=== PATIENT | female | born 1950 | race Caucasian/White ===

== ENCOUNTER 2020-07-24 10:43 | Outpatient (CLI) | payer MEDICARE, SELFPAY ==
--- NOTE | 2020-07-24 10:58 | ECG_ITS ---
Measurements Intervals [place] Rate: 67 P: -32 [place]: 148 QRS: -37 QRSD: 90 T: 60 QT: 413 QTc: 437 Interpretive Statements SINUS RHYTHM LEFT AXIS DEVIATION DELAYED PRECORDIAL R/S TRANSITION VOLTAGE CRITERIA FOR LVH BASELINE ARTIFACT- I, II, III, AVF BORDERLINE ECG Electronically Signed On 07-24-2020 11:23:08 FUEL ATTENDANT by Frank Small D.O.
== END 2020-07-24 10:44 | disposition home or self-care (01) ==
LOC: ANHCARD 10:47
PROVIDERS: PCP Physician Assistant; Visit Provider Physician Assistant
DX: I49.9 Cardiac arrhythmia, unspecified (principal); R94.31 Abnormal electrocardiogram [ECG] [EKG]
CPT/HCPCS: 93005

== ENCOUNTER 2021-06-29 10:59 | Outpatient (CLI) | payer MEDICARE, SELFPAY ==
[2021-06-29 17:26] LABS: Free T4 Free Thyroxine 1.18 ng/mL (0.78-2.19); Vitamin D 25 Hydroxy 51.5 ng/mL
[2021-07-02 15:03] LABS: Thyroid Stimulating Immunoglob <89 % baseline (<140)
== END 2021-06-29 11:00 | disposition home or self-care (01) ==
PROVIDERS: PCP Physician Assistant; Visit Provider Internal Medicine Endocrinology, Diabetes & Metabolism
DX: E03.9 Hypothyroidism, unspecified (principal); M85.89 Other specified disorders of bone density and structure, multiple sites; E55.9 Vitamin D deficiency, unspecified
CPT/HCPCS: 36415; 82306; 84439; 84443; 84445

== ENCOUNTER 2021-08-24 11:41 | Outpatient (CLI) | payer MEDICARE, SELFPAY ==
--- NOTE | ~2021-08-24 | MMUS_ITS ---
EXAMINATION: MM diagnostic flavio BI w alexsander, US breast RT limited, US breast LT complete HISTORY: Palpable breast lump. TECHNIQUE: Additional 3-D tomosynthesis images of the breasts were performed and synthetic 2-D images were generated. CAD analysis was submitted and interpreted. High resolution Limited right and comple te left breast ultrasound was performed. COMPARISON: No prior studies for comparison. BREAST PARENCHYMAL COMPOSITION: Breast composed of scattered areas of fibroglandular density. FINDINGS: MAMMOGRAPHIC FINDINGS: There is a cluster of indeterminate calcifications in the upper outer quadrant of the right breast po steriorly. There are no discrete masses or architectural distortion in either breast. ULTRASOUND: Limited right breast ultrasound: At 10:00, 4 cm from the nipple there is a 3 mm cyst. No suspicious m asses to suggest malignancy. Complete left breast ultrasound: The nipple at 6:00 is an oval hyperechoic mass without posterior features or internal vascularity ana suring 1 cm maximum dimension, compatible with benign lipoma. No suspicious masses to suggest maligna ncy. IMPRESSION: 1. Clustered indeterminate calcifications upper outer quadrant of the right breast. 2. Stereotactic right breast biopsy recommended. BI-RADS category 4, suspicious findings. Reviewed, dictated and finalized at location A. IMPRESSION: 1. Clustered indeterminate calcifications upper outer quadrant of the right matt ast. 2. Stereotactic right breast biopsy recommended. BI-RADS category 4, suspicious findings. IMPRESSION: 1. Clustered indeterminate calcifications upper outer quadrant of the right matt ast. 2. Stereotactic right breast biopsy recommended. BI-RADS category 4, suspicious findings.
== END 2021-08-24 11:42 | disposition home or self-care (01) ==
LOC: ANHIMG 11:47
PROVIDERS: PCP Physician Assistant; Visit Provider Obstetrics & Gynecology
DX: N63.20 Unspecified lump in the left breast, unspecified quadrant (principal); R92.8 Other abnormal and inconclusive findings on diagnostic imaging of breast
CPT/HCPCS: 76641; 76642; 77062; 77066; G0279

== ENCOUNTER → 2021-12-08 12:13 | Outpatient (CLI) | payer MEDICARE, SELFPAY ==
--- NOTE | ~2021-12-08 | DEXA_ITS ---
Bone Density Report Name: PHILLIP QUIROZ Age: 71 Sex: Female Ethnicity: White Date of : 1950 Indication: postmenopausal; screening for osteoporosis; height loss; Referring Provider: Sandrita Tello Study: Bone densitometry was performed. Exam Date: December 08, 2021 Accession number: [id number] Bone Density: Region BMD T-score Z-score Classification AP Spine (L1-L4) 0.933 -1.0 1.1 Normal Femoral Neck (Right) 0.715 -1.2 0.7 Osteopenia Total Hip (Right) 0.788 -1.3 0.3 Osteopenia World Health Organization criteria for BMD impression classify patients as: Normal (T-score at or above -1.0), Osteopenia (T-score between -1.0 and -2.5), or Osteoporosis (T-score at or below -2.5). 10-year Fracture Risk(1): Major Osteoporotic Fracture 8.9% Hip Fracture 1.1% Reported Risk Factors: [place] (), Neck BMD=0.715, BMI=34.1 (1) FRAX(R) Version 3.08. Fracture probability calculated for an untreated patient. Fracture probability may be lower if the patient has received treatment. Clinical Information Provided by Patient: Has used the following medications: Vitamin D, Calcium Patient maximum height was 66 Menopause Age: 55 No regular weight bearing exercise Drinks caffeinated beverages Onset of menses at age 14 Number of children 2 Impression: The patient has low bone mass, based on the Right Total Hip T-score. The patient has an estimated ten-year risk of hip fracture of 1.1% and an estimated ten-year risk of major fracture of 8.9%, based on the WHO FRAX algorithm. Discussion: BONE DENSITY IS LOW AT ONE OR MORE SKELETAL SITES. This patient's lowest T-score is low at one or more skeletal sites. It meets the World Health Organization's (WHO) criteria for ?low bone mass? (T-score between -1.0 and -2.5). The patient's 10-year risk of fracture as calculated by FRAX is less than the threshold where pharmacological therapy is recommended by the National Osteoporosis Foundation (NOF). However, all treatment decisions require clinical judgment and consideration of individual patient factors, including patient preferences, comorbidities, previous drug use, risk factors not captured in the FRAX model (e.g., frailty, falls, vitamin D deficiency, increased bone turnover, interval significant decline in bone density) and possible under or overestimation of fracture risk by FRAX. The patient should follow a healthful lifestyle (good nutrition with adequate calcium and vitamin D, and appropriate weight-bearing exercise). Follow-Up: Consider repeating this study in 2 to 3 years to reassess this patient's status, or sooner if there is some new clinical indication. Reported by: OCTAVIO on 12/08/2021 12:34:00 PM. Reviewed, dictated and finalized at location A. [place]
== END ==
PROVIDERS: PCP Internal Medicine; Visit Provider Internal Medicine Endocrinology, Diabetes & Metabolism
DX: Z78.0 Asymptomatic menopausal state (principal); M85.851 Other specified disorders of bone density and structure, right thigh
CPT/HCPCS: 77080

== ENCOUNTER 2022-10-27 09:24 | Outpatient (CLI) | payer MEDICARE, SELFPAY ==
--- NOTE | ~2022-10-27 | MM_ITS ---
EXAMINATION: MM screening [facility] BI w alexsander HISTORY: Screening TECHNIQUE: Craniocaudal and mediolateral oblique 3-D tomosynthesis images were obtained and synthetic 2-D images were generated. CAD analysis was submitted and interpreted. COMPARISON: Comparison to multiple prior studies sequentially, with oldest reviewed study dated 09/14. BREAST PARENCHYMAL COMPOSITION: Breast composed of scattered areas of fibroglandular density FINDINGS: There is a cluster of indeterminate calcifications which is stable compared with 08/24/2021 , likely benign. The left breast is stable without evidence for malignancy. IMPRESSION: 1. Clustered calcifications in the upper outer quadrant of the right breast unchanged compared with 0 08/24/2021, slightly increased compared with 09/26/2018. These are likely benign. 2. 6 month follow-up diagnostic right mammogram recommended. BI-RADS CATEGORY 3-PROBABLY BENIGN FINDING Reviewed, dictated and finalized at location A. IMPRESSION: 1. Clustered calcifications in the upper outer quadrant of the right breast unc hanged compared with 08/24/2021, slightly increased compared with 09/26/2018. T hese are likely benign. 2. 6 month follow-up diagnostic right mammogram recommended. BI-RADS CATEGORY 3-PROBABLY BENIGN FINDING
== END 2022-10-27 09:25 | disposition home or self-care (01) ==
LOC: ANHIMG 09:26
PROVIDERS: PCP Physician Assistant; Visit Provider Student in an Organized Health Care Education/Training Program
DX: Z12.31 Encounter for screening mammogram for malignant neoplasm of breast (principal); R92.8 Other abnormal and inconclusive findings on diagnostic imaging of breast
CPT/HCPCS: 77063; 77067

== ENCOUNTER 2023-05-04 10:52 | Outpatient (CLI) | payer MEDICARE, SELFPAY ==
--- NOTE | ~2023-05-04 | MM_ITS ---
EXAMINATION: MM diagnostic flavio RT w alexsander HISTORY: Six-month follow-up right breast calcifications TECHNIQUE: Additional 3-D tomosynthesis images of the right breast were performed and synthetic 2-D i mages were generated. CAD analysis was submitted and interpreted. COMPARISON: Comparison to multiple prior studies sequentially, with oldest reviewed study dated 11/2018. BREAST PARENCHYMAL COMPOSITION: Breast composed of scattered areas of fibroglandular density FINDINGS: Clustered indeterminate calcifications upper outer quadrant of the right breast posteriorly are stable allowing for differences in technique, likely benign. No new masses, calcifications or ar chitectural distortion in the right breast to suggest malignancy. IMPRESSION: 1. Probable benign right breast calcifications stable dating back to 08/24/2021. 2. 12 month interval diagnostic bilateral mammogram recommended. BI-RADS category 3, probably benign findings. Reviewed, dictated and finalized at location A. CREMATORY WORKER IMPRESSION: 1. Probable benign right breast calcifications stable dating back to 08/24/2021 . 2. 12 month interval diagnostic bilateral mammogram recommended. BI-RADS category 3, probably benign findings.
== END 2023-05-04 10:53 | disposition home or self-care (01) ==
PROVIDERS: PCP Physician Assistant; Visit Provider Student in an Organized Health Care Education/Training Program
DX: R92.8 Other abnormal and inconclusive findings on diagnostic imaging of breast (principal)
CPT/HCPCS: 77061; 77065; G0279

== ENCOUNTER 2024-09-19 10:18 | Outpatient (CLI) | payer MEDICARE, BC, SELFPAY ==
--- NOTE | ~2024-09-19 | MM_ITS ---
EXAMINATION: MM diagnostic flavio BI w alexsander HISTORY: Follow-up right breast calcifications TECHNIQUE: Additional 3-D tomosynthesis images of the breasts were performed and synthetic 2-D images were generated. CAD analysis was submitted and interpreted. COMPARISON: Comparison to multiple prior studies sequentially, with oldest reviewed study dated 11/2019. BREAST PARENCHYMAL COMPOSITION: Not dense: There are scattered areas of fibroglandular density. FINDINGS: The breasts are stable. Small clusters of right breast calcifications have a benign appeara nce and are not significantly changed from prior examinations. No new masses, calcifications or archi tectural distortion in either breast to suggest malignancy. IMPRESSION: 1. No evidence for malignancy in either breast. Benign findings. 2. Routine yearly screening mammogram and regular clinical breast examination are recommended. BI-RADS Category 2: Benign finding(s). Reviewed, dictated and finalized at location A. IMPRESSION: 1. No evidence for malignancy in either breast. Benign findings. 2. Routine yearly screening mammogram and regular clinical breast examination a re recommended. BI-RADS Category 2: Benign finding(s).
--- OUTSIDE RECORDS SUMMARY | 2024-09-19 11:29 | XMS_ITS | Clinical Summary ---
Author Organization [facility] Address [address] [place] [address] Care Team Providers Care Mobility Architect Name Role Phone Jose Thomas MD Primary Care Provider [phone] Allergies Active Allergy Reactions Criticality Noted Date Comments Codeine Vomiting Low 12/31/2019 Cefdinir Rash Medium 12/31/2019 Medications Synthroid 100 mcg tabletIndications :hypothyroidism Take 1 tablet (100 mcg total) by mouth hide and skin colerer before breakfast Takes at 2AM 0 Active calcium carbonate-vitamin D3 (CALTRATE 600 + D) 1500 mg (600 mg elemental) -400 units per tabletIndications :Post-Menopausal Osteoporosis Prevention Take 1 tablet by mouth 2 (two) times a day Active cholecalciferol (Vitamin D3) 1,000 unit capsuleIndication s:Vitamin D Deficiency Take 1 capsule (1,000 Units total) by mouth hide and skin colerer before breakfast Active ergocalciferol (VITAMIN D) 50,000 unit capsule TAKE 1 CAPSULE ONCE A WEEK FOR 12 WEEKS, THEN FOLLOW UP WITH YOUR PCP. 12 capsule 4 Active acetaminophen (TYLENOL) 500 mg tablet Take 2 tablets (1,000 mg total) by mouth every 8 (eight) hours 90 tablet 4 Active aspirin 81 mg enteric coated tablet Take 1 tablet (81 mg total) by mouth 2 (two) times a day 60 tablet 4 Active senna-docusate (PERICOLACE) 8.6-50 mg Take 2 tablets by mouth 2 (two) times a day May increase to 4 tablets twice daily if needed. HOLD medication for diarrhea. 80 tablet 1 4 Active meloxicam (MOBIC) 7.5 mg tablet Take 1 tablet (7.5 mg total) by mouth daily 30 tablet 4 Active methylPREDNISolon e (MEDROL DOSEPACK) 4 mg DosepackIndicatio ns:Postoperative pain Take as directed on package 1 packet 4 Active traMADoL (ULTRAM) 50 mg tabletIndications :Postoperative pain Take 1 tablet (50 mg total) by mouth every 6 (six) hours as needed for pain For mild/moderate pain 42 tablet 4 Active oxyCODONE (ROXICODONE) 5 mg immediate release tabletIndications :Pain Take 1 tablet (5 mg total) by mouth every 4 (four) hours as needed for pain For severe pain 30 tablet 4 Active amoxicillin 500 mg tablet/capsuleInd ications:Prophyla xis, Medical TAKE 4 PILL 1 HOUR BEFORE DENTAL APPOINTMENT. 4 tablet/capsu le 3 4 Active Active Problems Problem Noted Date Diagnosed Date Arthritis of knee 09/15/2023 Primary osteoarthritis of left knee 05/30/2023 Hypothyroidism 01/15/2020 Class 1 obesity in adult 01/15/2020 Primary osteoarthritis of right knee 12/31/2019 Overview (12/31/2019): Added automatically from request for surgery [id number] Encounters Date Type Department Care Team Description 09/12/2024 10:50 AM CDT Office Visit [facility] [address] [place] [address] Medical Office Building [address] [place] [address] Kareem Mccormack MD Aftercare following bilateral knee joint replacement surgery (Primary Dx); S/P total knee arthroplasty, bilateral 09/12/2024 10:26 AM CDT - 09/12/2024 11:59 PM CDT Hospital Encounter [facility] [address] [place] [address] [address] [place] [address] S/P total knee arthroplasty, bilateral Discharge Disposition: Discharge to home or self care from Last 3 Months Surgical History Surgery Date Site/Laterality Comments HIP SURGERY KNEE ARTHROSCOPY HIP ARTHROPLASTY Left Medical History Medical History Date Comments Arthritis GERD (gastroesophageal reflux disease) Osteoporosis Hypothyroidism Family History Medical History Relation Name Comments Arthritis Daughter Cancer Father Heart attack Maternal Grandmother Cancer Sister Anesthesia problems Neg Hx Relation Name Status Comments Daughter Father Maternal Grandmother Sister Social History Tobacco Use Types Packs/Day Years Used Date Smoking Tobacco: Former Passive Smoke Exposure: Past Smokeless Tobacco: Never Tobacco Cessation:Counseling Given: Not Answered Alcohol Use Standard Drinks/Week Comments Yes 0 (1 standard drink = 0.6 oz pur e alcohol) 2 vodka/day AUDIT-C Answer Date Recorded Q1: How often do you have a drink containing alc ohol? 2-3 times a week 09/15/2023 Q2: How many drinks containi ng alcohol do you have on a typical day when you are drinking? 1 or 2 09/15/2023 Frequency of Binge Drinking Not on file 08/22 Personal Safety Answer Date Recorded Have you ever been in or are you currently in a harmful physical or emotional relationship or is someone making you feel afraid or unsafe? 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 Gender Identity Female 08/24/2023 8:52 AM CDT Sexual Orientation Straight 08/24/2023 8: 52 AM CDT Obstetrics History Last Filed Vital Signs Vital Sign Reading Time Taken Comments Blood Pressure 129/68 09/15/2023 11:05 AM CDT Pulse 84 09/15/2023 11:05 AM CDT Temperature 35.5 C (95.9 F) 09/15/2023 8:50 AM CDT Respiratory Rate 16 09/15/2023 11:05 AM CDT Oxygen Saturation 96% 09/15/2023 10:30 AM CDT Inhaled Oxygen Concentration - - Weight 87.8 kg (193 lb 9.6 oz) 09/15/2023 5:22 A M CDT Height 165.1 cm (5' 5 ) 09/15/2023 5:22 AM CDT Body Mass Index 32.22 09/15/2023 5:22 AM CDT Plan of Treatment Health Maintenance Due Date Last Done Comments Breast Cancer Screening-Mammogram 1950 Colon Cancer Screening-Colonoscopy 1950 Depression Screening 1950 Hepatitis C Screening 1950 Osteoporosis Screening-Bone Density Scan 1950 DTaP/Tdap/Td Vaccine (1 - Tdap) 1961 Hepatitis B Screening 1968 Pneumococcal vaccine 65+ (1 of 1 - PCV) 2000 Zoster Vaccine (1 of 2) 2000 Well Visit 65+ 08/11/2015 Fall Risk Assessment 09/14/2024 09/15/2023 Influenza Vaccine (Season Ended) 2025 06/22/19 20 Medical Devices Implanted Type Area Application Coordinator Device Identifier Shelf Expiration Date Model / Serial / Lot [employer] [id number] Attune Cruciate Retain Cementless Knee Right 5 Component Femoral - S0 - [id number] Implanted:Qty: 1 on 01/17/2020 by Kareem Mccormack MD at [facility] Other - see comments Right: Knee [employer] [id number] 05/22/2029 [id number] / 0 / [id number] [employer] [id number] Attune 5mm Cruciate Retaining Rotate Platform Knee 5 Insert - S0 - [id number] Implanted:Qty: 1 on 01/17/2020 by Kareem Mccormack MD at [facility] Other - see comments Right: Knee [employer] [id number] 12/20/2024 [id number] / 0 / [id number] [employer] [id number] Attune Cementless Rotate Platform Knee 6 Baseplate Tibial - S0 - [id number] Implanted:Qty: 1 on 01/17/2020 by Kareem Mccormack MD at [facility] Other - see comments Right: Knee [employer] [id number] 04/21/2029 [id number] / 0 / [id number] [employer] Insert Tibial Knee Fixed Lm Posterior Stabilized Attune 5mm Size 5 Polyethylene [id number] - [id number] Implanted:Qty: 1 on 09/15/2023 at [facility] Left: Knee [employer] 07/21/2031 [id number] / / [id number] [employer] Attune Cruciate Retain Cementless Knee Left 5 Narrow Component [id number] - [id number] Implanted:Qty: 1 on 09/15/2023 at [facility] Left: Knee [employer] 08/20/2032 [id number] / / [id number] [employer] Attune Fb Tib Base Sz 5 Por [id number] - [id number] Implanted:Qty: 1 on 09/15/2023 at [facility] Left: Knee [employer] 11/20/2031 [id number] / / [id number] Procedures Procedure Name Priority Date/Time Associated Diagnosis Comments XR KNEE BILATERAL 3 VIEWS Schedule Routine, Read Routine (OP Routine) 09/12/2024 10:35 AM CDT S/P total knee arthroplasty, bilateral from Last 3 Months Results * XR Knee Bilateral 3 Views (09/12/2024 10:35 AM CDT) Anatomical Region Laterality Modality Lower Extremities, Knee Bilateral Computed Radiography 09/12/2024 11:1 6 AM CDT Impressions 09/12/2024 11:16 AM CDT Bilateral 2 component knee arthroplasties in near-anatomic position. Electronically signed by: Marcus Heredia M.D. Narrative 09/12/2024 11:16 AM CDT EXAMINATION: XR KNEE BILATERAL 3 VIEWS HISTORY: Bilateral knee osteoarthritis FINDINGS: 3 views of each knee were performed with comparison made to 10/12/2023. There are bilateral 2 component knee arthroplasties in near-anatomic position. There is no periprosthetic lucency or fracture. There is no joint effusion. Procedure Note Marcus Heredia MD PhD - 09/12/2024 EXAMINATION: XR KNEE BILATERAL 3 VIEWS HISTORY: Bilateral knee osteoarthritis FINDINGS: 3 views of each knee were performed with comparison made to 10/12/2023. There are bilateral 2 component knee arthroplasties in near-anatomic position. There is no periprosthetic lucency or fracture. There is no joint effusion. IMPRESSION: Bilateral 2 component knee arthroplasties in near-anatomic position. Electronically signed by: Marcus Heredia M.D. Kareem Mccormack MD IMG XR PROCEDURES Final R esult from Last 3 Months Insurance [facility] MEDICARE BLUE CROSS MEDICARE SUPPLEMENT MEDICARE [facility] MEDICARE SUPPLEMENT Advance Directives For more information, please contact: [phone] * Full Code (Latest Code Status on File) Date Activated Date Inactivated Comments 09/15/2023 8:26 AM 09/15/2023 3:39 PM * Full Code Date Activated Date Inactivated Comments 01/17/2020 11:55 AM 01/17/2020 4:57 PM Care Teams Mobility Architect Relationship Specialty Start Date End Date Jose Thomas MD [address] [place] [id number] PCP - General Internal Medicine 06/19/19
--- OUTSIDE RECORDS SUMMARY | 2024-09-19 11:29 | XMS_ITS | Encounter Summary ---
Author Organization [facility] Healthcare Address [address] [place] [address] Care Team Providers Care Deck Hand Name Role Phone Unavailable Primary Care Provider Unavailabl e Reason for Visit * Diagnostic Imaging (Routine) - Closed Specialty Diagnoses / Procedures Referred By Contac t Referred To Contact Procedures Breast Imaging Screening Outside Reference Mariana Foy MD Phone: tel: fax: Referral ID Status Reason Start Date Expiration Date Visits Re quested Visits Authorized [id number] Closed 09/23/2021 10/23/2022 1 1 Encounter Details Date Type Department Care Team (Late st Contact Info) Description 05/11/2013 Hospital Encounter [facility] [address] [place] [id number] Social History Tobacco Use Types Packs/Day Years Used Date Smoking Tobacco: Former Passive Smoke Exposure: Past Smokeless Tobacco: Never Alcohol Use Standard Drinks/Week Comments Yes 0 [...] on file 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 2-3 times a week 09/15/2023 5:40 AM CDT Eagle Jeffrey RN Q2: How many drinks containing alcohol do you have on a typical day when you are drinking? 1 or 2 09/15/2023 5:40 AM CDT Eagle Jeffrey RN Q3: How often do you have six or more drinks on one occasion? Never 08/17/2023 11:12 AM CDT Huma Mane RN documented as of this encounter Plan of Treatment Not on file documented as of this encounter Procedures Procedure Name Priority Date/Time Associated Diagnosis Comments BREAST IMAGING MG SCREENING OUTSIDE REFERENCE Routine 05/11/2013 12:00 AM SPECIAL DIET COOK documented in this encounter Results * Breast Imaging Screening Outside Reference (05/11/2013 12:00 AM SPECIAL DIET COOK) Impressions [facility] - 09/23/2021 3:05 PM CDT These images are for Reference purposes only and have not been reviewed by [facility] Radiology. There will be no report generated by a [facility] Radiologist. Narrative [facility] - 09/23/2021 3:05 PM CDT EXAMINATION: Images For Reference Purposes Only us Mariana Foy MD IMG MAMMO PROCEDURES Fi nal Result [facility] documented in this encounter Visit Diagnoses Not on filedocumented in this encounter Additional Health Concerns Infection Onset Date Last Indicated Resolved Time COVID: Suspected 05/21/2023 05/21/2023 05/21/2023 7:43 PM SPECIAL DIET COOK Influenza, adult 05/21/2023 05/21/2023 05/28/2023 3:05 AM SPECIAL DIET COOK COVID: Suspected 06/16/2023 06/16/2023 06/16/2023 9:47 AM SPECIAL DIET COOK RSV, droplet 06/16/2023 06/16/2023 06/23/2023 3:05 AM SPECIAL DIET COOK documented as of this encounter
--- OUTSIDE RECORDS SUMMARY | 2024-09-19 11:29 | XMS_ITS | Encounter Summary ---
Author Organization [facility] Healthcare Address [address] [place] [address] Care Team Providers Care Diagrammer Name Role Phone Unavailable Primary Care Provider Unavailabl e Reason for Visit * Diagnostic Imaging (Routine) - Closed Specialty Diagnoses / Procedures Referred By Contac t Referred To Contact Procedures Breast Imaging Diagnostic Outside Reference Mariana Foy MD Phone: tel: fax: Referral ID Status Reason Start Date Expiration Date Visits Re quested Visits Authorized [id number] Closed 09/23/2021 10/23/2022 1 1 Encounter Details Date Type Department Care Team (Late st Contact Info) Description 09/26/2018 Hospital Encounter [facility] [address] [place] [id number] Social History Tobacco Use Types Packs/Day Years [...] on file 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 Radiology. There will be no report generated by a [facility] Radiologist. 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
--- OUTSIDE RECORDS SUMMARY | 2024-09-19 11:29 | XMS_ITS | Referral Summary ---
Author Organization [facility] Address [address] [place] [id number] Care Team Providers Care Supervisor Steel Division Name Role Phone Jose Thomas MD Primary Care Provider +1- [phone] Encounters Date Type Department Care Team Description 09/12/2024 10:26 AM CDT - 09/12/2024 11:59 PM CDT Hospital Encounter [id number] [address] [place] [address] [address] [place] [id number] S/P total knee arthroplasty, bilateral Discharge Disposition: Discharge to home or self care 09/12/2024 10:50 AM CDT Office Visit [facility] Orthopaedic Surgery [address] [place] [address] Medical Office Building [address] [place] [address] Kareem Mccormack MD Aftercare following bilateral knee joint replacement surgery (Primary Dx); S/P total knee arthroplasty, bilateral from Last 3 Months Allergies Active Allergy Reactions Criticality Noted Date Comments Codeine Vomiting Low 12/31/2019 Cefdinir Rash Medium 12/31/2019 Medications Synthroid 100 mcg tabletIndications :hypothyroidism Take 1 tablet (100 mcg total) by mouth early childhood education instructor before breakfast Takes at 2AM 0 Active calcium carbonate-vitamin D3 (CALTRATE 600 + D) 1500 mg (600 mg elemental) -400 units per tabletIndications :Post-Menopausal Osteoporosis Prevention Take 1 tablet by mouth 2 (two) times a day Active cholecalciferol (Vitamin D3) 1,000 unit capsuleIndication s:Vitamin D Deficiency Take 1 capsule (1,000 Units total) by mouth early childhood education instructor before breakfast Active ergocalciferol (VITAMIN D) 50,000 [...] (12/31/2019): Added automatically from request for surgery [id number] Social History Tobacco Use Types Packs/Day Years [...] on file Legal Sex Female 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 Gender Identity Female 08/24/2023 8:52 AM CDT Sexual Orientation Straight 08/24/2023 8: 52 AM CDT Last Filed Vital Signs Vital Sign Reading [...] 09/15/2023 5:22 AM CDT Plan of Treatment Not on file Medical Devices Implanted Type Area Medical Support Assistant Device Identifier Shelf Expiration Date Model / Serial / Lot [employer] [id number] Attune Cruciate Retain Cementless Knee Right 5 Component Femoral - S0 - [id number] Implanted:Qty: 1 on 01/17/2020 by Kareem Mccormack MD at [facility] Other - see comments Right: Knee [employer] [id number] 05/22/2029 [id number] / 0 / [id number] [employer] [id number] Attune 5mm Cruciate Retaining Rotate Platform Knee 5 Insert - S0 - [id number] Implanted:Qty: 1 on 01/17/2020 by Kareem Mccormack MD at [facility] Other - see comments Right: Knee [employer] [id number] 12/20/2024 [id number] / 0 / [id number] [employer] [id number] Attune Cementless Rotate Platform Knee 6 Baseplate Tibial - S0 - [id number] Implanted:Qty: 1 on 01/17/2020 by Kareem Mccormack MD at [facility] Other - see comments Right: Knee [employer] [id number] 04/21/2029 [id number] / 0 / [id number] [employer] Insert Tibial Knee Fixed Lm Posterior Stabilized Attune 5mm Size 5 Polyethylene [id number] - [id number] Implanted:Qty: 1 on 09/15/2023 at [facility] Left: Knee [employer] 07/21/2031 [id number] / / [id number] [employer] Attune Cruciate Retain Cementless Knee Left 5 Narrow Component [id number] - [id number] Implanted:Qty: 1 on 09/15/2023 at [facility] Left: Knee [employer] 08/20/2032 [id number] / / [id number] [employer] Attune Fb Tib Base Sz 5 Por [id number] - [id number] Implanted:Qty: 1 on 09/15/2023 at [facility] Left: Knee [employer] 11/20/2031 [id number] / / [id number] Procedures Procedure Name Priority Date/Time Associated Diagnosis [...] R esult from Last 3 Months Insurance [facility] MEDICARE [facility] MEDICARE SUPPLEMENT MEDICARE [facility] MEDICARE SUPPLEMENT Advance Directives For more information, please contact: [phone] * Full Code (Latest Code Status on File) Date Activated Date Inactivated Comments 09/15/2023 8:26 AM 09/15/2023 3:39 PM * Full Code Date Activated Date Inactivated Comments 01/17/2020 11:55 AM 01/17/2020 4:57 PM Care Teams Supervisor Steel Division Relationship Specialty Start Date End Date Jose Thomas MD [address] [facility] [address] [place] [id number] PCP - General Internal Medicine 06/19/19
--- OUTSIDE RECORDS SUMMARY | 2024-09-19 11:29 | XMS_ITS | Encounter Summary ---
Author Organization [facility] Healthcare Address [address] [place] [address] Care Team Providers Care Mailhouse Operator Name Role Phone Unavailable Primary Care Provider Unavailabl e Reason for Visit * Diagnostic Imaging (Routine) - Closed Specialty Diagnoses / Procedures Referred By Contac t Referred To Contact Procedures Breast Imaging Diagnostic Outside Reference Mariana Foy MD Phone: tel: fax: Referral ID Status Reason Start Date Expiration Date Visits Re quested Visits Authorized [id number] Closed 09/23/2021 10/23/2022 1 1 Encounter Details Date Type Department Care Team (Late st Contact Info) Description 05/10/2017 Hospital Encounter [facility] [address] [place] [id number] Social History Tobacco Use Types Packs/Day Years [...] on file Legal 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 There will be no report generated by a [facility] Radiologist. Narrative RAD_MAMMO[facility] - 09/23/2021 3:03 PM CDT EXAMINATION: Images For Reference Purposes Only us Mariana Foy MD IMG MAMMO PROCEDURES Fi nal Result [facility]_MAMMO[facility] documented in this encounter Visit Diagnoses Not on filedocumented in this encounter Additional Health Concerns Infection Onset Date Last Indicated Resolved Time COVID: Suspected 05/21/2023 05/21/2023 05/21/2023 7:43 PM MACHINE TOOL MECHANIC Influenza, adult 05/21/2023 05/21/2023 05/28/2023 3:05 AM MACHINE TOOL MECHANIC COVID: Suspected 06/16/2023 06/16/2023 06/16/2023 9:47 AM MACHINE TOOL MECHANIC RSV, droplet 06/16/2023 06/16/2023 06/23/2023 3:05 AM MACHINE TOOL MECHANIC documented as of this encounter
--- OUTSIDE RECORDS SUMMARY | 2024-09-19 11:29 | XMS_ITS | Encounter Summary ---
Author Organization [facility] Healthcare Address [address] [place] [address] Care Team Providers Care Cabinetmaker Helper Name Role Phone Unavailable Primary Care Provider Unavailabl e Reason for Visit * Diagnostic Imaging (Routine) - Closed Specialty Diagnoses / Procedures Referred By Contac t Referred To Contact Procedures Breast Imaging Diagnostic Outside Reference Mariana Foy MD Phone: tel: fax: Referral ID Status Reason Start Date Expiration Date Visits Re quested Visits Authorized [id number] Closed 09/23/2021 10/23/2022 1 1 Encounter Details Date Type Department Care Team (Late st Contact Info) Description 09/10/2016 Hospital Encounter [facility] [address] [place] [id number] Social History Tobacco Use Types Packs/Day Years [...] on file Legal Sex Female 3:58 AM EMERGENCY PREPAREDNESS MANAGER Gender Identity Female 08/24/2023 8:52 AM CDT [...] BREAST IMAGING MG DIAGNOSTIC OUTSIDE REFERENCE Routine 09/10/2016 12:00 AM CDT documented in this encounter Results * Breast Imaging Diagnostic Outside Reference (09/10/2016 12:00 AM CDT) Impressions RAD_MAMMO[facility] - 09/23/2021 3:03 PM CDT These images are for Reference purposes only and have not been reviewed by [facility] Radiology. There will be no report generated by a [facility] Radiologist. Narrative RAD_MAMMO[facility] - 09/23/2021 3:03 PM CDT EXAMINATION: Images For Reference Purposes Only us Mariana Foy MD IMG MAMMO PROCEDURES Fi nal Result [facility]MO[facility] documented in this encounter Visit Diagnoses Not on filedocumented in this encounter Additional Health Concerns Infection Onset Date Last Indicated Resolved Time COVID: Suspected 05/21/2023 05/21/2023 05/21/2023 7:43 PM EMERGENCY PREPAREDNESS MANAGER Influenza, adult 05/21/2023 05/21/202305/28/2023 3:05 AM EMERGENCY PREPAREDNESS MANAGER COVID: Suspected 06/16/2023 06/16/2023 06/16/2023 9:47 AM EMERGENCY PREPAREDNESS MANAGER RSV, droplet 06/16/2023 06/16/2023 06/23/2023 3:05 AM EMERGENCY PREPAREDNESS MANAGER documented as of this encounter
--- OUTSIDE RECORDS SUMMARY | 2024-09-19 11:29 | XMS_ITS | Encounter Summary ---
Author Organization [facility] Healthcare Address [address] [place] [address] Care Team Providers Care Vp Security Name Role Phone Unavailable Primary Care Provider Unavailabl e Reason for Visit * Diagnostic Imaging (Routine) - Closed Specialty Diagnoses / Procedures Referred By Contarcelia t Referred To Contact Procedures Breast Imaging Screening Outside Reference Mariana Foy MD Phone: tel: fax: Referral ID Status Reason Start Date Expiration Date Visits Re quested Visits Authorized [id number] Closed 09/23/2021 10/23/2022 1 1 Encounter Details Date Type Department Care Team (Late st Contact Info) Description 09/01/2016 Hospital Encounter [facility]iology [facility] [address] [place] [id number] Social History Tobacco Use Types Packs/Day Years [...] on file Legal Sex Female 3:58 AM DISPATCHER CHIEF COAL SLURRY Gender Identity Female 08/24/2023 8:52 AM CDT [...] BREAST IMAGING MG SCREENING OUTSIDE REFERENCE Routine 09/01/2016 12:00 AM CDT documented in this encounter Results * Breast Imaging Screening Outside Reference (09/01/2016 12:00 AM CDT) Impressions RAD_MAMMO[facility] - 09/23/2021 3:04 PM CDT These images are for Reference purposes only and have not been reviewed by [facility] Radiology. There will be no report generated by a [facility] Radiologist. Narrative RAD_MAMMO_[facility] - 09/23/2021 3:04 PM CDT EXAMINATION: Images For Reference Purposes Only us Mariana Foy MD IMG MAMMO PROCEDURES Fi nal Result [facility]MO[facility] documented in this encounter Visit Diagnoses Not on filedocumented in this encounter Additional Health Concerns Infection Onset Date Last Indicated Resolved Time COVID: Suspected 05/21/2023 05/21/2023 05/21/2023 7:43 PM DISPATCHER CHIEF COAL SLURRY Influenza, adult 05/21/2023 05/21/2023 05/28/2023 3:05 AM DISPATCHER CHIEF COAL SLURRY COVID: Suspected 06/16/2023 06/16/2023 06/16/2023 9:47 AM DISPATCHER CHIEF COAL SLURRY RSV, droplet 06/16/2023 06/16/2023 06/23/2023 3:05 AM DISPATCHER CHIEF COAL SLURRY documented as of this encounter
--- OUTSIDE RECORDS SUMMARY | 2024-09-19 11:29 | XMS_ITS | Encounter Summary ---
Author Organization [facility] Healthcare Address [address] [place] [address] Care Team Providers Care Mva Reactor Operator Name Role Phone Jose Thomas MD Primary Care Provider +1- [phone] Encounter Details Date Type Department Care Team (Late st Contact Info) Description 01/17/2020 Documentation [facility] Case Management [id number] [place] [address] [place] [address] Jenn Causey RN Social History Tobacco Use Types Packs/Day Years Used Date Smoking Tobacco: Former Smokeless Tobacco: Never Alcohol Use Standard Drinks/Week Comments Yes 0 (1 standard drink = 0.6 oz pur e alcohol) 2 vodka/day Comments No Sex and Gender Information Value Date Recorded Sex Assigned at Not on file Legal Sex Female 3:58 AM TIRE MECHANIC Gender Identity Female 08/24/2023 8:52 AM CDT Sexual Orientation Straight 08/24/2023 8: 52 AM CDT documented as of this encounter Plan of Treatment Not on file documented as of this encounter Visit Diagnoses Not on filedocumented in this encounter Additional Health Concerns Infection Onset Date Last Indicated Resolved Time COVID: Suspected 05/21/2023 05/21/2023 05/21/2023 7:43 PM TIRE MECHANIC Influenza, adult 05/21/2023 05/21/2023 05/28/2023 3:05 AM TIRE MECHANIC COVID: Suspected 06/16/2023 06/16/2023 06/16/2023 9:47 AM TIRE MECHANIC RSV, droplet 06/16/2023 06/16/2023 06/23/2023 3:05 AM TIRE MECHANIC documented as of this encounter Care Teams Mva Reactor Operator Relationship Specialty Start Date End Date Jose Thomas MD [address] [facility] [address] [place] [phone] PCP - General Internal Medicine 06/19/19 documented as of this encounter
--- OUTSIDE RECORDS SUMMARY | 2024-09-19 11:29 | XMS_ITS | Encounter Summary ---
Author Organization [facility] Healthcare Address [address] [place] [address] Care Team Providers Care Oil Producer Name Role Phone Unavailable Primary Care Provider Unavailabl e Reason for Visit * Diagnostic Imaging (Routine) - Closed Specialty Diagnoses / Procedures Referred By Contarcelia t Referred To Contact Diagnoses Abnormal mammogram of right breast Procedures Breast Imaging Screening Outside Reference Mariana Foy MD Phone: tel: fax: Referral ID Status Reason Start Date Expiration Date Visits Re quested Visits Authorized [id number] Closed 09/23/2021 10/23/2022 1 1 Encounter Details Date Type Department Care Team (Late st Contact Info) Description 08/07/2015 Hospital Encounter [facility] [address] [place] [address] Social History Tobacco Use Types Packs/Day Years [...] on file Legal Sex Female 3:58 AM MEASUREMENT COORDINATOR Gender Identity Female 08/24/2023 8:52 AM CDT [...] BREAST IMAGING MG SCREENING OUTSIDE REFERENCE Routine 08/07/2015 12:00 AM CDT Abnormal mammogram of right breast documented in this encounter Results * Breast Imaging Screening Outside Reference (08/07/2015 12:00 AM CDT) Impressions RAD_MAMMO[facility] - 09/23/2021 3:19 PM CDT These images are for Reference purposes only and have not been reviewed by [facility] Radiology. There will be no report generated by a [facility] Radiologist. Narrative RAD_MAMMO_[facility] - 09/23/2021 3:19 PM CDT EXAMINATION: Images For Reference Purposes Only us Mariana Foy MD IMG MAMMO PROCEDURES Fi nal Result [facility]MO[facility] documented in this encounter Visit Diagnoses Not on filedocumented in this encounter Additional Health Concerns Infection Onset Date Last Indicated Resolved Time COVID: Suspected 05/21/2023 05/21/2023 05/21/2023 7:43 PM MEASUREMENT COORDINATOR Influenza, adult 05/21/2023 05/21/2023 05/28/2023 3:05 AM MEASUREMENT COORDINATOR COVID: Suspected 06/16/2023 06/16/2023 06/16/2023 9:47 AM MEASUREMENT COORDINATOR RSV, droplet 06/16/2023 06/16/2023 06/23/2023 3:05 AM MEASUREMENT COORDINATOR documented as of this encounter
--- OUTSIDE RECORDS SUMMARY | 2024-09-19 11:29 | XMS_ITS | Encounter Summary ---
Author Organization [facility] Healthcare Address [address] [place] [address] Care Team Providers Care Sr. Director Name Role Phone Unavailable Primary Care Provider Unavailabl e Reason for Visit * Diagnostic Imaging (Routine) - Closed Specialty Diagnoses / Procedures Referred By Contarcelia t Referred To Contact Procedures Breast Imaging Screening Outside Reference Mariana Foy MD Phone: tel: fax: Referral ID Status Reason Start Date Expiration Date Visits Re quested Visits Authorized [id number] Closed 09/23/2021 10/23/2022 1 1 Encounter Details Date Type Department Care Team (Late st Contact Info) Description 05/13/2014 Hospital Encounter [facility]iology [facility] [address] [place] [id number] Social History Tobacco Use Types Packs/Day Years [...] on file Legal Sex Female 3:58 AM EDITING INTERN Gender Identity Female 08/24/2023 8:52 AM CDT [...] BREAST IMAGING MG SCREENING OUTSIDE REFERENCE Routine 05/13/2014 12:00 AM EDITING INTERN documented in this encounter Results * Breast Imaging Screening Outside Reference (05/13/2014 12:00 AM EDITING INTERN) Impressions RAD_MAMMO[facility] - 09/23/2021 3:06 PM CDT These images are for Reference purposes only and have not been reviewed by [facility] Radiology. There will be no report generated by a [facility] Radiologist. Narrative RAD_MAMMO_[facility] - 09/23/2021 3:06 PM CDT EXAMINATION: Images For Reference Purposes Only us Mariana Foy MD IMG MAMMO PROCEDURES Fi nal Result RAD_M[facility]MO[facility] documented in this encounter Visit Diagnoses Not on filedocumented in this encounter Additional Health Concerns Infection Onset Date Last Indicated Resolved Time COVID: Suspected 05/21/2023 05/21/2023 05/21/2023 7:43 PM EDITING INTERN Influenza, adult 05/21/2023 05/21/2023 05/28/2023 3:05 AM EDITING INTERN COVID: Suspected 06/16/2023 06/16/2023 06/16/2023 9:47 AM EDITING INTERN RSV, droplet 06/16/2023 06/16/2023 06/23/2023 3:05 AM EDITING INTERN documented as of this encounter
--- OUTSIDE RECORDS SUMMARY | 2024-09-19 11:29 | XMS_ITS | Encounter Summary ---
Author Organization [facility] Healthcare Address [address] [place] [address] Care Team Providers Care Candy Department Manager Name Role Phone Unavailable Primary Care Provider Unavailabl e Reason for Visit * Diagnostic Imaging (Routine) - Closed Specialty Diagnoses / Procedures Referred By Contac t Referred To Contact Procedures Breast Imaging Diagnostic Outside Reference Mariana Foy MD Phone: tel: fax: Referral ID Status Reason Start Date Expiration Date Visits Re quested Visits Authorized [id number] Closed 09/23/2021 10/23/2022 1 1 Encounter Details Date Type Department Care Team (Late st Contact Info) Description 09/14/2017 Hospital Encounter [facility] Radiology [facility] [address] [place] [address] Social History Tobacco Use Types Packs/Day Years [...] on file Legal Sex Female 3:58 AM SEO INTERN Gender Identity Female 08/24/2023 8:52 AM [...] BREAST IMAGING MG DIAGNOSTIC OUTSIDE REFERENCE Routine 09/14/2017 12:00 AM CDT documented in this encounter Results * Breast Imaging Diagnostic Outside Reference (09/14/2017 12:00 AM CDT) Impressions RAD_MAMMO[facility] - 09/23/2021 3:01 PM CDT These images are for Reference purposes only and have not been reviewed by [facility] Radiology. There will be no report generated by a [facility] Radiologist. Narrative RAD_MAMMO_[facility] - 09/23/2021 3:01 PM CDT EXAMINATION: Images For Reference Purposes Only us Mariana Foy MD IMG MAMMO PROCEDURES Fi nal Result RAD_M[facility]MO[facility] documented in this encounter Visit Diagnoses Not on filedocumented in this encounter Additional Health Concerns Infection Onset Date Last Indicated Resolved Time COVID: Suspected 05/21/2023 05/21/2023 05/21/2023 7:43 PM SEO INTERN Influenza, adult 05/21/2023 05/21/202305/28/2023 3:05 AM SEO INTERN COVID: Suspected 06/16/2023 06/16/2023 06/16/2023 9:47 AM SEO INTERN RSV, droplet 06/16/2023 06/16/2023 06/23/2023 3:05 AM SEO INTERN documented as of this encounter
== END 2024-09-19 10:19 | disposition home or self-care (01) ==
LOC: ANHIMG 10:20
PROVIDERS: PCP Internal Medicine; Visit Provider Obstetrics & Gynecology
DX: N63.10 Unspecified lump in the right breast, unspecified quadrant (principal); N63.20 Unspecified lump in the left breast, unspecified quadrant; R92.1 Mammographic calcification found on diagnostic imaging of breast
CPT/HCPCS: 77062; 77066; G0279

== ENCOUNTER 2024-12-14 11:09 | Outpatient (CLI) | payer MEDICARE, BC, SELFPAY ==
--- NOTE | ~2024-12-14 | DEXA_ITS ---
Bone Density Report Name: PHILLIP QUIROZ Age: 74 Sex: Female Ethnicity: White Date of : 1950 Indication: osteopenia; parental hip fracture; height loss; Referring Provider: Sandrita Tello Study: Bone densitometry was performed. Exam Date: December 14, 2024 Accession number: [id number] Bone Density: Region BMD T-score Z-score Classification AP Spine(L1-L4) 0.885 -1.5 0.9 Osteopenia Femoral Neck (Right) 0.796 -0.5 1.6 Normal Total Hip (Right) 0.839 -0.8 0.9 Normal World Health Organization criteria for BMD impression classify patients as: Normal (T-score at or above -1.0), Osteopenia (T-score between -1.0 and -2.5), or Osteoporosis (T-score at or below -2.5). 10-year Fracture Risk(1): Major Osteoporotic Fracture 11% Hip Fracture 3.1% Reported Risk Factors: [place] (), Neck BMD=0.796, BMI=34.5, parental fracture (1) FRAX(R) Version 3.08. Fracture probability calculated for an untreated patient. Fracture probability may be lower if the patient has received treatment. Previous Exams: -- Region Exam Age BMD T-score BMD Change BMD Change Date g/cm2 vs Baseline vs Previous -- AP Spine (L1-L4) 12/14/2024 74 0.885 -1.5 -5.1%* -5.1%* 12/08/2021 71 0.933 -1.0 Total Hip(Right) 12/14/2024 74 0.839 -0.8 6.5%* 6.5%* 12/08/2021 71 0.788 -1.3 -- *Denotes significance at 95% confidence level, LSC for AP Spine = 0.022 g/cm2, LSC for Total Hip = 0.027 g/cm2 Clinical Information Provided by Patient: Parent has had a hip fracture Has used the following medications: Vitamin D, Calcium Has the following medical conditions: LEFT HIP REPLACEMENT & GRAVES DISEASE Patient maximum height was 66 Menopause Age: 55 No regular weight bearing exercise Drinks caffeinated beverages Onset of menses at age 13 Number of children 2 Impression: The patient has low bone mass, based on the Total Spine T-score. The patient has an estimated ten-year risk of hip fracture of 3.1% and an estimated ten-year risk of major fracture of 11%, based on the WHO FRAX algorithm. The patient has risk factors, including: parental hip fracture. The BMD for the AP Spine (L1-L4) decreased, changing by -5.1% since the last DXA exam. Discussion: BONE DENSITY IS LOW AT ONE OR MORE SKELETAL SITES. THE PATIENT'S BMD AND CLINICAL RISK FACTORS CONTRIBUTE TO THIS PATIENT'S INCREASED RISK OF FRACTURE. This patient's lowest T-score is low at one or more skeletal sites. It meets the World Health Organization's (WHO) criteria for ?low bone mass? (T-score between -1.0 and -2.5). The patient's 10-year risk of hip fracture as calculated by FRAX exceeds the threshold where pharmacological therapy is recommended by the National Osteoporosis Foundation (NOF). However, all treatment decisions require clinical judgment and consideration of individual patient factors, including patient preferences, comorbidities, previous drug use, risk factors not captured in the FRAX model (e.g., frailty, falls, vitamin D deficiency, increased bone turnover, interval significant decline in bone density) and possible under or overestimation of fracture risk by FRAX. The patient should follow a healthful lifestyle (good nutrition with adequate calcium and vitamin D, and appropriate weight-bearing exercise). Follow-Up: Consider a repeat BMD and Vertebral Fracture Assessment (VFA) exam in 2 years or sooner if medically necessary, to reassess this patient's status. Reported by: OCTAVIO on 12/14/2024 11:27:00 AM. Reviewed, dictated and finalized at location A.
== END 2024-12-14 11:10 | disposition home or self-care (01) ==
LOC: MICIMG 11:10
PROVIDERS: PCP Internal Medicine; Visit Provider Internal Medicine Endocrinology, Diabetes & Metabolism
DX: Z78.0 Asymptomatic menopausal state (principal); M85.88 Other specified disorders of bone density and structure, other site
CPT/HCPCS: 77080